=== PATIENT | female | born 1955 | race Caucasian/White ===

== ENCOUNTER 2016-09-09 17:30 | Emergency (ER) | payer BC ==
[~2016-09-09] VITALS: Ht 177.8 cm; Wt 100.0 kg
[~2016-09-09 17:30] MED LIST: ARIP10TA13 PO; BLVX50T PO; DIVA500T7 PO; HYDR-3025 PO; LORA0.5T PO; TEMA30CA PO; TRAM50TA2 PO; TRAZ300T15 PO
[2016-09-09 18:42] VITALS: Ht 177.8 cm; Wt 100.0 kg
[2016-09-09] MEDS ORDERED: HYDROmorphONE 1 MG/ML SYG IV STA (19:04)
[2016-09-09] MEDS ORDERED: ONDANSETRON 4 MG INJ IV STA (19:04)
[2016-09-09] MEDS ORDERED: BUPIVACAINE 0.25% (MPF) 10 ML 10 ML VIAL INJ ONE (19:30)
[2016-09-09] MEDS ORDERED: LIDOCAINE 1% (MDV) 20 ML INJ SC ONE (19:30)
[2016-09-09] MEDS ORDERED: LORAZEPAM 2 MG INJ IV ONE (19:30)
[2016-09-09] MEDS ORDERED: METHYLPREDNISOLONE 40 MG INJ IV ONE ×2 (19:30)
--- NOTE | 2016-09-09 19:41 | RADRPT ---
PROCEDURE: US Lower extremity Venous. CLINICAL INDICATION: Bilateral lower extremity pain and swelling TECHNIQUE: Multiple sonographic images of the bilateral lower extremity deep venous system was obt ained utilizing grayscale, color-flow, compressive sonography and doppler imaging with augmentation. The images were reviewed on a PACS workstation. COMPARISON: None. FINDINGS: There is normal compressibility and flow within the bilateral common femoral, deep femoral, superfic ial femoral and popliteal veins. The deep veins the calf were incompletely visualized. IMPRESSION: No sonographic evidence for deep venous thrombosis in the bilateral lower extremities. Physician Gio Date Time Electronically viewed and signed by Physician Gio on 09/09/2016 19:41 ML/
[2016-09-09] MEDS ORDERED: ARIP15TA2 PO (19:58)
[2016-09-09] MEDS ORDERED: PANT40TA4 PO (19:59)
[2016-09-09] MEDS ORDERED: BUPIVACAINE 0.25% (MPF) 30 ML INJ INJ ONE (20:00)
[2016-09-09] MEDS ORDERED: CIPR500T4 PO ×2 (20:00→20:34)
[2016-09-09] MEDS ORDERED: OXYB5TAB7 PO (20:01)
[2016-09-09] MEDS ORDERED: VENL75CA89 PO (20:03)
[2016-09-09] MEDS ORDERED: METR500T PO (20:34)
[2016-09-09] MEDS ORDERED: DIPH1TAB PO (20:34)
[2016-09-09] MEDS ORDERED: HYDR-902 PO (20:34)
--- NOTE | 2016-09-09 20:38 | ERD ---
ER Documentation Chief Complaint Date/Time DATE: 09/09/16 TIME: 20:35 Chief Complaint billateral lower extremity pain r/t chronic osteoarthritis. HPI This is 61-year-old female complains of bilateral knee pain due to her chronic osteoarthritis. She says her naproxen is not helping the pain today. Pain is sharp worse with movement and still there with rest but not as bad. She thinks she has some swelling in her knees. No fever no falls no trauma. No numbness weakness in the legs. Patient is morbidly obese. Pain does not radiate. She is also complaining of diarrhea for 2 weeks off and on. She says she is having 2 loose stools a day every other day for 2 weeks. No fever no vomiting no abdominal ROS All systems reviewed and are negative except as per history of present illness. Medications Home Meds Active Scripts Diphenoxylate HCl/Atropine (Lomotil 2.5-0.025 mg Tablet) 1 Each Tablet, 1 TAB PO QID Y for DIARRHEA, #10 TAB Prov:KAREEM ERAZO DO 09/09/16 Ciprofloxacin Hcl* (Ciprofloxacin Hcl*) 500 Mg Tablet, 500 MG PO BID for 10 Days , TAB Prov:KAREEM ERAZO DO 09/09/16 Metronidazole* (Flagyl*) 500 Mg Tablet, 500 MG PO TID for 10 Days, TAB Prov:KAREEM ERAZO DO 09/09/16 Hydrocodone/Acetaminophen ([place] 10-325 Tablet) 1 Each Tablet, 1 TAB PO Q6H Y for PAIN, #20 TAB Prov:KAREEM ERAZO DO 09/09/16 Reported Medications Venlafaxine Hcl* (Venlafaxine Hcl ER*) 75 Mg Cap.er.24h, 75 MG PO DAILY, CAP 09/09/16 Oxybutynin Chloride* (Ditropan*) 5 Mg Tab, 5 MG PO TID, TAB 09/09/16 Ciprofloxacin Hcl* (Ciprofloxacin Hcl*) 500 Mg Tablet, 500 MG PO BID, #14 TAB 09/09/16 Pantoprazole* (Pantoprazole*) 40 Mg Tablet.dr, 40 MG PO DAILY, TAB 09/09/16 Aripiprazole* (Abilify*) 15 Mg Tablet, 15 MG PO DAILY, #30 TAB 09/09/16 Temazepam* (Temazepam*) 30 Mg Capsule, 30 MG PO QHS Y for SLEEP, #30 10/27/15 Trazodone Hcl* (Trazodone Hcl*) 300 Mg Tablet, 300 MG PO QHS, #30 TAB 10/27/15 Divalproex Sodium* (Depakote*) 500 Mg Tablet.dr, 500 MG PO TID, #90 TAB 10/27/15 Fluvoxamine Maleate* (Luvox*) 50 Mg Tab, 200 MG PO BID, TAB TAKE 200MG QAM AND 250QPM 10/27/15 Discontinued Reported Medications Lorazepam* (Lorazepam*) 0.5 Mg Tablet, 0.5 MG PO DAILY Y for ANXIETY, TAB 10/27/15 Aripiprazole* (Abilify*) 10 Mg Tablet, 10 MG PO DAILY, #30 TAB 10/27/15 Discontinued Scripts Tramadol HCl (Tramadol HCl) 50 Mg Tablet, 50 MG PO Q6 Y for PAIN, #20 TAB Prov:HERMINIA RODRIGUES MD 03/05/16 Hydrocodone Bit-Acetaminophen* (Vicodin* ES) 7.5-300 Mg Tablet, 1 TAB PO Q4H Y for PAIN, #20 TAB Prov:ANURADHA SIM 10/27/15 Allergies Allergies: Coded Allergies: Fish Containing Products (Verified Allergy, Mild, rash, 09/09/16) Sulfa (Sulfonamide Antibiotics) (Verified Allergy, Mild, 09/09/16) strawberry (Verified Allergy, Mild, 09/09/16) turkey (Verified Allergy, Mild, 09/09/16) PMhx/Soc History of Surgery: Yes (RIGHT 2ND TOE AMBUTATION) Anesthesia Reaction: No Hx Neurological Disorder: No Hx Respiratory Disorders: No Hx Cardiac Disorders: Yes (murmur) Hx Psychiatric Problems: Yes (depression, ocd) Hx Miscellaneous Medical Probl: Yes (osteomyelitis r 2nd toe,depression,OCD, psychosis, skin ca) Hx Alcohol Use: No Hx Substance Use: No Hx Tobacco Use: No Smoking Status: Never smoker FmHx Family History: No coronary disease Physical Exam Vitals Vital Signs Date Time Temp Pulse Resp B/P Pulse Ox O2 Delivery O2 Flow Rate FiO2 09/09/16 18:42 98.0 90 22 155/104 100 Physical Exam Const: Well-developed, well-nourished Head: Atraumatic, normocephalic Eyes: Normal Conjunctiva, PERRLA, EOMI, normal sclera, no nystagmus ENT: Normal External Ears, Nose and Mouth, moist mucus membranes. Neck: Full range of motion. No meningismus, no lymphadenopathy. Resp: Clear to auscultation bilaterally, no wheezing, rhonchi, rales Cardio: Regular rate and rhythm, no murmurs, S1 S2 present Abd: Soft, non tender x 4, non distended. Normal bowel sounds, no guarding or rebound, no pulsitile abdominal masses or bruits Skin: No petechiae or rashes, no ecchymosis , no maculopapular rash Back: No midline or flank tenderness Ext: No cyanosis, or edema, FROM x 4, bilateral osteoarthritic knees with no erythema pain with range of motion is present, neurovascularly intact x 4 Neur: Awake and alert, STR 5/5 x 4, sensation intact x 4, no focal findings, cerebellum intact Psych: Normal Mood and Affect Results 24 hrs Current Medications Medications (Trade) Dose Ordered Sig/Pieter Route PRN Reason Start Time Stop Time Status Last Admin Dose Admin Lorazepam (Ativan) 0.5 mg ONCE ONCE IV 09/09/16 19:30 09/09/16 19:31 DC 09/09/16 19:43 Hydromorphone HCl (Dilaudid) 0.5 mg ONCE STAT IV 09/09/16 19:04 09/09/16 19:05 DC 09/09/16 19:40 Ondansetron HCl (Zofran Inj) 4 mg ONCE STAT IV 09/09/16 19:04 09/09/16 19:05 DC 09/09/16 19:39 Bupivacaine HCl (Marcaine 0.25% (Mpf) 10 ml) 10 ml ONCE ONCE INJ 09/09/16 19:30 09/09/16 19:31 DC Methylprednisolone Sodium Succinate (Solu-Medrol) 40 mg ONCE ONCE IV 09/09/16 19:30 09/09/16 19:31 DC 09/09/16 19:40 Methylprednisolone Sodium Succinate (Solu-Medrol) 40 mg ONCE ONCE IV 09/09/16 19:30 09/09/16 19:31 DC 09/09/16 19:40 Lidocaine (Xylocaine 1% (Mdv) 20 ml) 20 ml ONCE ONCE SC 09/09/16 19:30 09/09/16 19:31 DC 09/09/16 19:40 Bupivacaine HCl (Marcaine 0.25% (Mpf) 30 ml) 10 ml ONCE ONCE INJ 09/09/16 20:00 09/09/16 20:01 DC 09/09/16 20:08 Procedures/MDM Bilateral lower extremity ultrasound demonstrates no evidence of DVT Procedure: Right knee joint injection by ar Skin was prepped with aseptic technique and the skin was numbed with half a cc of 1% lidocaine. An 22-gauge inch and a half needle was then inserted the medial aspect of the right knee through the fat pad into the knee space where 5 cc of fluid was injected containing 1 cc of Solu-Medrol 4 cc of 0.25% bupivacaine. Patient tolerated procedure well Procedure:Left knee joint injection by ar Skin was prepped with aseptic technique and the skin was numbed with half a cc of 1% lidocaine. An 22-gauge inch and a half needle was then inserted the medial aspect of the left knee through the fat pad into the knee space where 5 cc of fluid was injected containing 1 cc of Solu-Medrol 4 cc of 0.25% bupivacaine. Patient tolerated procedure well We will cover the patient's diarrhea with Cipro and Flagyl Lomotil. Departure Diagnosis: Primary Impression: Diarrhea Diarrhea type: presumed infectious Qualified Code: A09 - Diarrhea of presumed infectious origin Additional Impression: Osteoarthritis Osteoarthritis location: knee Osteoarthritis type: unspecified Laterality: bilateral Qualified Code: M17.0 - Osteoarthritis of both knees, unspecified osteoarthritis type Condition: Stable Patient Instructions: Treating Diarrhea, Osteoarthritis KAREEM ERAZO DO Sep 09, 2016 20:38
[2016-09-09 21:26] VITALS: BP 131/80; PULSE 83; RESP 17; TEMP 97.5
== END 2016-09-09 21:45 | disposition home or self-care (01) ==
LOC: E/R 17:30
DX: A09 Infectious gastroenteritis and colitis, unspecified (principal); M17.0 Bilateral primary osteoarthritis of knee; Z85.828 Personal history of other malignant neoplasm of skin
CPT/HCPCS: 20610; 93970; 96374; 96375; 99284; J1170; J2060; J2405; J2920; Z7610

== ENCOUNTER 2016-10-24 09:17 | Emergency (ER) | payer BC ==
[~2016-10-24] VITALS: Ht 180.3 cm; Wt 75.0 kg
[~2016-10-24 09:17] MED LIST changes: -ARIP10TA13 PO; +ARIP15TA2 PO; +CIPR500T4 PO; +DIPH1TAB PO; -HYDR-3025 PO; +HYDR-902 PO; -LORA0.5T PO; +METR500T PO; +OXYB5TAB7 PO; +PANT40TA4 PO; -TRAM50TA2 PO; +VENL75CA89 PO
[2016-10-24 09:18] VITALS: Ht 180.3 cm; Wt 75.0 kg
[2016-10-24] MEDS ORDERED: LORAZEPAM 2 MG INJ IM STA (09:27)
[2016-10-24 11:28] LABS: ADD SCAN DIFF NO
[2016-10-24 11:33] LABS: BASOPHILS % 0.2 % (0.0-2.0); EOSINOPHILS % 0.2 % (0.0-7.0); HEMOGLOBIN 13.5 g/dl (12.0-16.0); LYMPHOCYTES # 1.5 10^3/ul (0.8-2.9); LYMPHOCYTES % 28.3 % (15.0-51.0); MEAN CORPUSCULAR HEMOGLOBIN 30.6 pg (29.0-33.0); MEAN CORPUSCULAR HGB CONC 32.1 g/dl (32.0-37.0); MEAN CORPUSCULAR VOLUME 95.2 fl (82.0-101.0); MEAN PLATELET VOLUME 9.9 fl (7.4-10.4); MONOCYTE # 0.4 10^3/ul (0.3-0.9); MONOCYTES % 8.1 % (0.0-11.0); NEUTROPHIL # 3.4 10^3/ul (1.6-7.5); PLATELET COUNT 256 10^3/UL (140-415); RED BLOOD COUNT 4.41 10^6/ul (4.20-5.40); RED CELL DISTRIBUTION WIDTH 13.4 % (11.5-14.5); WHITE BLOOD COUNT 5.5 10^3/ul (4.8-10.8)
[2016-10-24 11:40] LABS: ALBUMIN 4.3 g/dl (3.3-4.9); CHLORIDE 99 mmol/L (97-110)
[2016-10-24 11:41] LABS: POTASSIUM 4.3 mmol/L (3.5-5.1); SODIUM 142 mmol/L (135-144)
[2016-10-24 11:43] LABS: ALANINE AMINOTRANSFERASE 19 IU/L (13-69); ALBUMIN/GLOBULIN RATIO 1.34; ALKALINE PHOSPHATASE 120 IU/L (42-121); ANION GAP 15 (8-16); ASPARTATE AMINO TRANSFERASE 17 IU/L (15-46); BILIRUBIN,INDIRECT 0.1 mg/dl (0-1.1); BILIRUBIN,TOTAL 0.1 mg/dl (0.2-1.3); BLOOD UREA NITROGEN 20 mg/dl (7-20); CALCIUM 9.9 mg/dl (8.4-10.2); CARBON DIOXIDE 32 mmol/L (21-31); CREATININE 0.67 mg/dl (0.44-1.00); GLUCOSE 102 mg/dl (70-220); TOTAL PROTEIN 7.5 g/dl (6.1-8.1)
[2016-10-24 11:45] LABS: ACETAMINOPHEN < 10.0 ug/ml (10.0-30.0); ETHANOL < 10.0 mg/dl; SALICYLATE < 1.0 mg/dl (5.0-30.0)
[2016-10-24 11:49] LABS: ADD UMIC YES; URINE BILIRUBIN (Dip) NEGATIVE (NEGATIVE); URINE BLOOD (Dip) NEGATIVE (NEGATIVE); URINE COLOR LT. YELLOW (YELLOW); URINE GLUCOSE (Dip) NEGATIVE (NEGATIVE); URINE KETONES (Dip) NEGATIVE (NEGATIVE); URINE LEUKOCYTE ESTERASE (Dip) NEGATIVE (NEGATIVE); URINE NITRITE (Dip) POSITIVE (NEGATIVE); URINE TOTAL PROTEIN (Dip) NEGATIVE (NEGATIVE); URINE UROBILINOGEN (Dip) 0.2 E.U./dL (0.1-1.0)
[2016-10-24] MEDS ORDERED: CEPHALEXIN 500 MG CAP PO ONE (12:00)
[2016-10-24 12:08] LABS: BACTERIA,URINE MODERATE; URINE RBCS NONE SEEN /HPF (0)
[2016-10-24 12:15] LABS: BARBITURATES Negative (NEGATIVE); BENZODIAZEPINES Negative (NEGATIVE); CANNABINOIDS Negative (NEGATIVE); COCAINE Negative (NEGATIVE); OPIATES Negative (NEGATIVE)
--- NOTE | 2016-10-24 12:34 | PSY ---
Date/Time of Note Date/Time of Note DATE: 10/24/16 TIME: 12:28 Psychiatric Subjective Eval Consent Pt consented to telemedicine: Yes Subjective Evaluation Patient location: emergency Chief Complaint: Neck pain and anxiety started this morning Reason for consult: SUICIDAL IDEATION History of present illness D/w Dr Denise. Pt is 61 yo single disabled female with hx Bipolar II disorder and OA who called in private ambulance saying she has Si and neck pain and needs help. Pt says she wants to be transferred to a better board and care. Then asked about SI she first say she will ran into traffic but later admits she can not walk even to get to the bathroom and wears diapers. She then agrees to go back to her board and care but says she does not like it and will work on finding another place. Denies Si or Hi,denies Ah or Vh. Past psychiatric history pt says she has a multiple psych inpt for depression and Si but never in her life tried to commit suicide Hospitalization: yes Family History denies Medical history Problems Medical Problems: (1) Diarrhea Status: Acute (2) Osteoarthritis Status: Acute (3) Pain of toe Status: Acute Allergies: Coded Allergies: Fish Containing Products (Verified Allergy, Mild, rash, 09/09/16) Sulfa (Sulfonamide Antibiotics) (Verified Allergy, Mild, 09/09/16) strawberry (Verified Allergy, Mild, 09/09/16) turkey (Verified Allergy, Mild, 09/09/16) Substance Abuse Substance use: No known substance abuse Social History Marital status: single Level of education: 4 YEAR DEGREE DPA/Conservatorship: No Psychiatric Objective Eval Mental Status Examination: Appearance: Groomed Eye Contact: Good Psychomotor Activity: Normal Behavior: Cooperative Speech: Clear AFFECT: Anxious Mood: Anxious Though Process: Linear Thought Content: Normal Suicidal: No Homicidal: No On 72 hour hold: No Orientation: x4 Cognition: Alert Insight: Intact Judgement: Intact Laboratory Results Laboratory Tests Test 10/24/16 10:52 10/24/16 11:21 Urine Color LT. YELLOW Urine Clarity CLEAR Urine pH 7.0 Urine Specific [place] 1.015 Urine Ketones NEGATIVE Urine Nitrite POSITIVE Urine Bilirubin NEGATIVE Urine Urobilinogen 0.2 E.U./dL Urine Leukocyte Esterase NEGATIVE Urine Microscopic RBC NONE SEEN/HPF Urine Microscopic WBC 0-2/HPF Urine Bacteria MODERATE Urine Hemoglobin NEGATIVE Urine Glucose NEGATIVE% Urine Total Protein NEGATIVE Urine Opiates Screen Negative Urine Barbiturates Negative Urine Amphetamines Screen Negative Urine Benzodiazepines Screen Negative Urine Cocaine Screen Negative Urine Cannabinoids Negative White Blood Count 5.510^3/ul Red Blood Count 4.4110^6/ul Hemoglobin 13.5g/dl Hematocrit 42.0% Mean Corpuscular Volume 95.2fl Mean Corpuscular Hemoglobin 30.6pg Mean Corpuscular Hemoglobin Concent 32.1g/dl Red Cell Distribution Width 13.4% Platelet Count 84489^3/UL Mean Platelet Volume 9.9fl Neutrophils % 63.0% Lymphocytes % 28.3% Monocytes % 8.1% Eosinophils % 0.2% Basophils % 0.2% Nucleated Red Blood Cells % 0.0/100WBC Neutrophils # 3.410^3/ul Lymphocytes # 1.510^3/ul Monocytes # 0.410^3/ul Eosinophils # 0.010^3/ul Basophils # 0.010^3/ul Nucleated Red Blood Cells # 0.010^3/ul Sodium Level 142mmol/L Potassium Level 4.3mmol/L Chloride Level 99mmol/L Carbon Dioxide Level 32mmol/L Anion Gap 15 Blood Urea Nitrogen 20mg/dl Creatinine 0.67mg/dl Glucose Level 102mg/dl Calcium Level 9.9mg/dl Total Bilirubin 0.1mg/dl Direct Bilirubin 0.00mg/dl Indirect Bilirubin 0.1mg/dl Aspartate Amino Transf (AST/SGOT) 17IU/L Alanine Aminotransferase (ALT/SGPT) 19IU/L Alkaline Phosphatase 120IU/L Total Protein 7.5g/dl Albumin 4.3g/dl Globulin 3.20g/dl Albumin/Globulin Ratio 1.34 Salicylates Level < 1.0mg/dl Acetaminophen Level < 10.0ug/ml Ethyl Alcohol Level < 10.0mg/dl Assessment and Plan Assessment/Diagnosis [place] I: BIPOLAR II DISORDER [place] II: DEPENDENT PERSONALITY TRAITS [place] III: PER RECORD [place] IV: MODERATE [place] V: GAF 45 Recommendation/Plan Medication Management CONTINUE CURRENT MEDS; PT WAS ADVISED TO CALL HER PSYCHIATRIST FOR MEDS MANAGEMENT IN A MEAN TIME SHE SHOULD CONTINUE CURRENT MEDS REGIME Psychotherapy DEFERED TO OUTPT Follow-up/Disposition PT DOES NOT PRESENT DTS - HER SUICIDAL STATEMENT WAS A PART OF MANIPULATIVE BEHAVIOR IN ORDER TO GET A NEW PLACEMENT REAL FRAZIER MD Oct 24, 2016 12:34
[2016-10-24] MEDS ORDERED: CEPH-443 PO (13:22)
--- NOTE | 2016-10-24 13:52 | ERD ---
ER Documentation Chief Complaint Date/Time DATE: 10/24/16 TIME: 13:47 Chief Complaint Neck pain and anxiety started this morning HPI 61-year-old woman brought in by EMS for anxiety and crying this morning while at a boarding care living facility. She states she has a long history of anxiety and obsessive-compulsive disorder when she found out her new living situation she became more anxious. She recently moved to this new living facility. She denies suicidal or homicidal ideation, no fevers or chills, no complaints of chest pain or shortness of breath. Patient was transported here by EMS without further complications. ROS All systems reviewed and are negative except as per history of present illness. Medications Home Meds Active Scripts Cephalexin* (Keflex*) 500 Mg Capsule, 500 MG PO TID for 7 Days, CAP Prov:MERLYN WATSON MD 10/24/16 Diphenoxylate HCl/Atropine (Lomotil 2.5-0.025 mg Tablet) 1 Each Tablet, 1 TAB PO QID Y for DIARRHEA, #10 TAB Prov:KAREEM ERAZO DO 09/09/16 Ciprofloxacin Hcl* (Ciprofloxacin Hcl*) 500 Mg Tablet, 500 MG PO BID for 10 Days , TAB Prov:KAREEM ERAZO DO 09/09/16 Metronidazole* (Flagyl*) 500 Mg Tablet, 500 MG PO TID for 10 Days, TAB Prov:KAREEM ERAZO DO 09/09/16 Hydrocodone/Acetaminophen ([place] 10-325 Tablet) 1 Each Tablet, 1 TAB PO Q6H Y for PAIN, #20 TAB Prov:KAREEM ERAZO DO 09/09/16 Reported Medications Venlafaxine Hcl* (Venlafaxine Hcl ER*) 75 Mg Cap.er.24h, 75 MG PO DAILY, CAP 09/09/16 Oxybutynin Chloride* (Ditropan*) 5 Mg Tab, 5 MG PO TID, TAB 09/09/16 Ciprofloxacin Hcl* (Ciprofloxacin Hcl*) 500 Mg Tablet, 500 MG PO BID, #14 TAB 09/09/16 Pantoprazole* (Pantoprazole*) 40 Mg Tablet.dr, 40 MG PO DAILY, TAB 09/09/16 Aripiprazole* (Abilify*) 15 Mg Tablet, 15 MG PO DAILY, #30 TAB 09/09/16 Temazepam* (Temazepam*) 30 Mg Capsule, 30 MG PO QHS Y for SLEEP, #30 10/27/15 Trazodone Hcl* (Trazodone Hcl*) 300 Mg Tablet, 300 MG PO QHS, #30 TAB 10/27/15 Divalproex Sodium* (Depakote*) 500 Mg Tablet.dr, 500 MG PO TID, #90 TAB 10/27/15 Fluvoxamine Maleate* (Luvox*) 50 Mg Tab, 200 MG PO BID, TAB TAKE 200MG QAM AND 250QPM 10/27/15 Allergies Allergies: Coded Allergies: Fish Containing Products (Verified Allergy, Mild, rash, 09/09/16) Sulfa (Sulfonamide Antibiotics) (Verified Allergy, Mild, 09/09/16) strawberry (Verified Allergy, Mild, 09/09/16) turkey (Verified Allergy, Mild, 09/09/16) PMhx/Soc Hypertension, anxiety, gastritis, OCD History of Surgery: Yes (RIGHT 2ND TOE AMBUTATION) Anesthesia Reaction: No Hx Neurological Disorder: No Hx Respiratory Disorders: Yes (COPD) Hx Cardiac Disorders: Yes (murmur) Hx Psychiatric Problems: Yes (depression, ocd) Hx Miscellaneous Medical Probl: Yes (osteomyelitis r 2nd toe,depression,OCD, psychosis, skin ca) Hx Alcohol Use: No Hx Substance Use: No Hx Tobacco Use: No Smoking Status: Never smoker FmHx Family History: No diabetes Physical Exam Vitals Vital Signs Date Time Temp Pulse Resp B/P Pulse Ox O2 Delivery O2 Flow Rate FiO2 10/24/16 09:18 98.2 100 18 166/82 94 Physical Exam GENERAL: Well-developed, well-nourished, anxious and tearful HEENT: Moist mucous membranes, pink conjunctiva, no cervical spine tenderness or step-off deformities, no goiter, no jaundice or icterus, extraocular movements intact without pain. No submandibular induration, and no pharyngeal erythema NEURO: Alert and oriented 3, cranial nerves II through XII intact bilaterally, pupils equal round reactive to light, no focal deficits or facial asymmetry, sensation intact distally Strength 5/5 in upper and lower extremities bilaterally CARDIAC: Tachycardic and regular, no murmurs rubs or gallops LUNGS: Clear bilaterally no wheezing crackles or stridor ABDOMEN: Soft nontender, no guarding, no rigidity, no rebound, no psoas sign no obturator sign. Normoactive bowel sounds SKIN: Warm and dry to touch, no abrasions, contusions, or hematomas, no lacerations, no ecchymosis, no target lesions, and without ulcers EXTREMITIES: No clubbing cyanosis or edema, calves are bilaterally symmetrical, no Homans sign, no popliteal cord sign. Distal pulses equal and bilateral PSYCH: Anxious and tearful Result Diagram: 10/24/16 1121 10/24/16 1121 Results 24 hrs Laboratory Tests Test 10/24/16 10:52 10/24/16 11:21 Urine Color LT. YELLOW Urine Clarity CLEAR Urine pH 7.0 Urine Specific [place] 1.015 Urine Ketones NEGATIVE Urine Nitrite POSITIVE Urine Bilirubin NEGATIVE Urine Urobilinogen 0.2 E.U./dL Urine Leukocyte Esterase NEGATIVE Urine Microscopic RBC NONE SEEN/HPF Urine Microscopic WBC 0-2/HPF Urine Bacteria MODERATE Urine Hemoglobin NEGATIVE Urine Glucose NEGATIVE% Urine Total Protein NEGATIVE Urine Opiates Screen Negative Urine Barbiturates Negative Urine Amphetamines Screen Negative Urine Benzodiazepines Screen Negative Urine Cocaine Screen Negative Urine Cannabinoids Negative White Blood Count 5.510^3/ul Red Blood Count 4.4110^6/ul Hemoglobin 13.5g/dl Hematocrit 42.0% Mean Corpuscular Volume 95.2fl Mean Corpuscular Hemoglobin 30.6pg Mean Corpuscular Hemoglobin Concent 32.1g/dl Red Cell Distribution Width 13.4% Platelet Count 64449^3/UL Mean Platelet Volume 9.9fl Neutrophils % 63.0% Lymphocytes % 28.3% Monocytes % 8.1% Eosinophils % 0.2% Basophils % 0.2% Nucleated Red Blood Cells % 0.0/100WBC Neutrophils # 3.410^3/ul Lymphocytes # 1.510^3/ul Monocytes # 0.410^3/ul Eosinophils # 0.010^3/ul Basophils # 0.010^3/ul Nucleated Red Blood Cells # 0.010^3/ul Sodium Level 142mmol/L Potassium Level 4.3mmol/L Chloride Level 99mmol/L Carbon Dioxide Level 32mmol/L Anion Gap 15 Blood Urea Nitrogen 20mg/dl Creatinine 0.67mg/dl Glucose Level 102mg/dl Calcium Level 9.9mg/dl Total Bilirubin 0.1mg/dl Direct Bilirubin 0.00mg/dl Indirect Bilirubin 0.1mg/dl Aspartate Amino Transf (AST/SGOT) 17IU/L Alanine Aminotransferase (ALT/SGPT) 19IU/L Alkaline Phosphatase 120IU/L Total Protein 7.5g/dl Albumin 4.3g/dl Globulin 3.20g/dl Albumin/Globulin Ratio 1.34 Salicylates Level < 1.0mg/dl Acetaminophen Level < 10.0ug/ml Ethyl Alcohol Level < 10.0mg/dl Current Medications Medications (Trade) Dose Ordered Sig/Pieter Route PRN Reason Start Time Stop Time Status Last Admin Dose Admin Lorazepam (Ativan) 1 mg ONCE STAT IM 10/24/16 09:27 10/24/16 09:29 DC 10/24/16 10:03 Cephalexin (Keflex) 500 mg ONCE ONCE PO 10/24/16 12:00 10/24/16 12:01 DC 10/24/16 12:19 Procedures/MDM 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 For anxiety administer lorazepam 1 mg intramuscular injection with good results. CBC and electrolytes were normal, urine analysis was positive for infection I treated her here with cephalexin 500 mg p.o. Tele-psychiatry consultation was obtained and the psychiatrist recommended against emergent psychiatric hold and no need at this time for acute inpatient management. She felt some of her symptoms were secondary to anxiety associated with the new living facility and that she did not present an acute danger to herself or others at this time. Patient's behavioral symptoms have stabilized while in the department. Patient is medically cleared and appropriate for outpatient psychiatric evaluation and work up. No e/o neurologic, toxic, infectious, or metabolic cause. Differential diagnoses considered, included but not limited to acute coronary syndrome, pulmonary embolism, aortic dissection, abdominal aortic aneurysm, sepsis, stroke, meningitis, encephalitis, pneumonia, appendicitis, cholecystitis , bowel obstruction, pyelonephritis, nephrolithiasis, cystitis, as well as metabolic, hematologic, and electrolyte abnormalities. As well as abscess, cellulitis, fractures, and dislocations. Patient feels much better at this time, and vital signs are normal, symptoms have improved. I did give strict instructions to return to the ED if symptoms continue or worsen, patient will otherwise follow-up with primary care physician. Patient understood instructions and agreed to plan. Departure Diagnosis: Primary Impression: Bipolar 1 disorder Additional Impression: UTI (urinary tract infection) Urinary tract infection type: acute cystitis Hematuria presence: without hematuria Qualified Code: N30.00 - Acute cystitis without hematuria Condition: Good Patient Instructions: Anxiety Reaction, Bipolar Disorder, Bladder Infection, Female (Adult) MERLYN WATSON MD Oct 24, 2016 13:52
[2016-10-24 13:53] VITALS: BP 173/96; PULSE 100; RESP 16; TEMP 97.9
== END 2016-10-24 14:22 | disposition home or self-care (01) ==
LOC: E/R 09:17
DX: F31.9 Bipolar disorder, unspecified (principal); N30.00 Acute cystitis without hematuria; I10 Essential (primary) hypertension; J44.9 Chronic obstructive pulmonary disease, unspecified; Z85.828 Personal history of other malignant neoplasm of skin
CPT/HCPCS: 36415; 80053; 80306; 80307; 81001; 85025; 96372; 99284; J2060; Z7610; 81003

== ENCOUNTER 2016-12-19 17:55 | Emergency (ER) | payer BC ==
[~2016-12-19] VITALS: Ht 177.8 cm; Wt 95.5 kg
[~2016-12-19 17:55] MED LIST changes: +CEPH-443 PO; -CIPR500T4 PO
[2016-12-19 17:59] VITALS: Ht 177.8 cm; Wt 95.5 kg
--- NOTE | 2016-12-19 18:33 | ERD ---
ER Documentation Chief Complaint Date/Time DATE: 12/19/16 TIME: 18:33 Chief Complaint DIARRHEA X3 DAYS, BURNING PAIN IN RECTUM AND VAGINA FROM DIARRHEA, ABD PAIN HPI Patient is a 61-year-old female who presents with gradual onset, intermittent, watery diarrhea for the last 3 years. She reports that symptoms last approximately 3 days and then resolve spontaneously. They then recur 2-3 weeks later. She denies dark or bloody stool. She denies fever. She reports mild suprapubic pain, denies dysuria or hematuria. She denies vaginal discharge. She reports that she has had 1-2 episodes of vomiting for the last 3 days, which is a new symptom for her. She denies dizziness, back pain, dyspnea. She reports that she finished a course of Cipro for UTI 1 week ago. She states that she has never seen a veneer manufacturer for her symptoms. She states that she is in the process of trying to find a new primary physician. She denies recent travel or eating undercooked foods, denies sick contacts. The patient reports skin irritation in the perianal area. ROS All systems reviewed and are negative except as per history of present illness. Medications Home Meds Active Scripts Menthol/Zinc Oxide (Calmoseptine Ointment) 71 Gm Oint..gm., 1 APPLIC TP BID for 5 Days, #1 TUB Prov:ERIKA GASPAR MD 12/19/16 Cephalexin* (Keflex*) 500 Mg Capsule, 500 MG PO QID for 7 Days, CAP Prov:ERIKA GASPAR MD 12/19/16 Cephalexin* (Keflex*) 500 Mg Capsule, 500 MG PO TID for 7 Days, CAP Prov:MERLYN WATSON MD 10/24/16 Diphenoxylate HCl/Atropine (Lomotil 2.5-0.025 mg Tablet) 1 Each Tablet, 1 TAB PO QID Y for DIARRHEA, #10 TAB Prov:KAREEM ERAZO DO 09/09/16 Metronidazole* (Flagyl*) 500 Mg Tablet, 500 MG PO TID for 10 Days, TAB Prov:KAREEM ERAZO DO 09/09/16 Hydrocodone/Acetaminophen ([place] 10-325 Tablet) 1 Each Tablet, 1 TAB PO Q6H Y for PAIN, #20 TAB Prov:KAREEM ERAZO DO 09/09/16 Reported Medications Venlafaxine Hcl* (Venlafaxine Hcl ER*) 75 Mg Cap.er.24h, 75 MG PO DAILY, CAP 09/09/16 Oxybutynin Chloride* (Ditropan*) 5 Mg Tab, 5 MG PO TID, TAB 09/09/16 Pantoprazole* (Pantoprazole*) 40 Mg Tablet.dr, 40 MG PO DAILY, TAB 09/09/16 Aripiprazole* (Abilify*) 15 Mg Tablet, 15 MG PO DAILY, #30 TAB 09/09/16 Temazepam* (Temazepam*) 30 Mg Capsule, 30 MG PO QHS Y for SLEEP, #30 10/27/15 Trazodone Hcl* (Trazodone Hcl*) 300 Mg Tablet, 300 MG PO QHS, #30 TAB 10/27/15 Divalproex Sodium* (Depakote*) 500 Mg Tablet.dr, 500 MG PO TID, #90 TAB 10/27/15 Fluvoxamine Maleate* (Luvox*) 50 Mg Tab, 200 MG PO BID, TAB TAKE 200MG QAM AND 250QPM 10/27/15 Allergies Allergies: Coded Allergies: Fish Containing Products (Verified Allergy, Mild, rash, 09/09/16) Sulfa (Sulfonamide Antibiotics) (Verified Allergy, Mild, 09/09/16) strawberry (Verified Allergy, Mild, 09/09/16) turkey (Verified Allergy, Mild, 09/09/16) PMhx/Soc Past medical history: Osteoarthritis, chronic diarrhea, COPD, depression, OCD Past surgical history: Denies Social history: Denies tobacco, drinks occasional alcohol History of Surgery: Yes (RIGHT 2ND TOE AMBUTATION) Anesthesia Reaction: No Hx Neurological Disorder: No Hx Respiratory Disorders: Yes (COPD(2ND HAND)) Hx Cardiac Disorders: Yes (murmur) Hx Psychiatric Problems: Yes (depression, ocd) Hx Miscellaneous Medical Probl: Yes (osteomyelitis r 2nd toe,depression,OCD, psychosis, skin ca) Hx Alcohol Use: Yes (OOC/SOCIAL) Hx Substance Use: No Hx Tobacco Use: No Smoking Status: Never smoker FmHx Family History: No coronary disease, No diabetes Physical Exam Vitals Vital Signs Date Time Temp Pulse Resp B/P Pulse Ox O2 Delivery O2 Flow Rate FiO2 12/19/16 23:36 98.4 79 17 147/89 98 Room Air 12/19/16 19:57 98.0 88 17 132/84 98 Room Air 12/19/16 17:59 97.9 85 17 132/63 96 Physical Exam Const: Alert, no acute distress Head: Atraumatic Eyes: Normal Conjunctiva, no pallor, no icterus ENT: Normal External Ears, Nose and Mouth. Mucous membranes moist Neck: Full range of motion..~ No meningismus. Resp: Clear to auscultation bilaterally, no wheezes, no rales Cardio: Regular rate and rhythm, no murmurs Abd: Soft, non distended. Mild suprapubic pain, no rebound, no guarding Skin: No petechiae. Slightly macerated tissue on the buttocks surrounding the anus Back: No midline or flank tenderness Ext: No cyanosis, or edema Neur: Awake and alert, cranial nerves II through XII intact bilaterally, moves and feels 4 extremities appropriately Psych: Normal Mood and Affect Result Diagram: 12/19/16182912/19/161829 Results 24 hrs Laboratory Tests Test 12/19/16 18:30 12/19/16 19:40 White Blood Count 6.810^3/ul Red Blood Count 3.6910^6/ul Hemoglobin 11.5g/dl Hematocrit 34.4% Mean Corpuscular Volume 93.2fl Mean Corpuscular Hemoglobin 31.2pg Mean Corpuscular Hemoglobin Concent 33.4g/dl Red Cell Distribution Width 13.9% Platelet Count 48411^3/UL Mean Platelet Volume 9.7fl Neutrophils % 60.4% Lymphocytes % 30.8% Monocytes % 7.6% Eosinophils % 0.9% Basophils % 0.0% Nucleated Red Blood Cells % 0.0/100WBC Neutrophils # 4.110^3/ul Lymphocytes # 2.110^3/ul Monocytes # 0.510^3/ul Eosinophils # 0.110^3/ul Basophils # 0.010^3/ul Nucleated Red Blood Cells # 0.010^3/ul Urine Color LT. YELLOW LT. YELLOW Urine Clarity CLEAR SLIGHTLY CLOUDY Urine pH 6.5 6.5 Urine Specific [place] 1.020 1.015 Urine Ketones NEGATIVE NEGATIVE Urine Nitrite NEGATIVE NEGATIVE Urine Bilirubin NEGATIVE NEGATIVE Urine Urobilinogen 0.2 E.U./dL 0.2 E.U./dL Urine Leukocyte Esterase 1+ 1+ Urine Microscopic RBC 2-5/HPF 0-2/HPF Urine Microscopic WBC 25-50/HPF 25-50/HPF Urine Squamous Epithelial Cells MODERATE FEW Urine Bacteria FEW RARE Urine Hemoglobin TRACE NEGATIVE Urine Glucose NEGATIVE% NEGATIVE% Urine Total Protein NEGATIVE NEGATIVE Sodium Level 145mmol/L Potassium Level 4.3mmol/L Chloride Level 106mmol/L Carbon Dioxide Level 28mmol/L Anion Gap 15 Blood Urea Nitrogen 31mg/dl Creatinine 0.80mg/dl Glucose Level 101mg/dl Calcium Level 9.8mg/dl Total Bilirubin 0.1mg/dl Direct Bilirubin 0.00mg/dl Indirect Bilirubin 0.1mg/dl Aspartate Amino Transf (AST/SGOT) 15IU/L Alanine Aminotransferase (ALT/SGPT) 27IU/L Alkaline Phosphatase 98IU/L Total Protein 6.8g/dl Albumin 4.3g/dl Globulin 2.50g/dl Albumin/Globulin Ratio 1.72 Procedures/MDM MDM: Patient is a 61-year-old female who reports recurrent diarrhea for more than 3 years. She is also had a few episodes of vomiting recently. She has normal electrolytes, no history to suggest GI bleed. She is found to have a UTI. There are no signs of sepsis. There is no vomiting in the ER, and the patient was unable to provide a stool sample during several hours in the ER. Patient was noted to have irritated skin in the perianal area. She will be discharged home with Keflex for UTI and calmoseptine for skin irritation. She was advised to follow-up with a veneer manufacturer given the chronicity of her symptoms. The patient is noted to wear diapers when she goes out of the home due to OCD and not wanting to use public toilets. She was advised that this will worsen her skin irritation. Departure Diagnosis: Primary Impression: Diarrhea Diarrhea type: unspecified type Qualified Code: R19.7 - Diarrhea, unspecified type Additional Impression: UTI (urinary tract infection) Urinary tract infection type: site unspecified Hematuria presence: without hematuria Qualified Code: N39.0 - Urinary tract infection without hematuria, site unspecified Condition: ERIKA Benavides MD Dec 19, 2016 18:33
[2016-12-19 18:47] LABS: ADD SCAN DIFF NO
[2016-12-19 18:50] LABS: EOSINOPHILS # 0.1 10^3/ul (0.0-0.5); EOSINOPHILS % 0.9 % (0.0-7.0); HEMATOCRIT 34.4 % (37.0-47.0); HEMOGLOBIN 11.5 g/dl (12.0-16.0); LYMPHOCYTES # 2.1 10^3/ul (0.8-2.9); LYMPHOCYTES % 30.8 % (15.0-51.0); MEAN CORPUSCULAR HEMOGLOBIN 31.2 pg (29.0-33.0); MEAN CORPUSCULAR HGB CONC 33.4 g/dl (32.0-37.0); MEAN CORPUSCULAR VOLUME 93.2 fl (82.0-101.0); MEAN PLATELET VOLUME 9.7 fl (7.4-10.4); MONOCYTE # 0.5 10^3/ul (0.3-0.9); MONOCYTES % 7.6 % (0.0-11.0); NEUTROPHIL # 4.1 10^3/ul (1.6-7.5); NEUTROPHILS % 60.4 % (39.0-77.0); PLATELET COUNT 259 10^3/UL (140-415); RED BLOOD COUNT 3.69 10^6/ul (4.20-5.40); RED CELL DISTRIBUTION WIDTH 13.9 % (11.5-14.5); WHITE BLOOD COUNT 6.8 10^3/ul (4.8-10.8)
[2016-12-19 18:59] LABS: ADD UMIC YES; URINE BILIRUBIN (Dip) NEGATIVE (NEGATIVE); URINE BLOOD (Dip) TRACE (NEGATIVE); URINE COLOR LT. YELLOW (YELLOW); URINE GLUCOSE (Dip) NEGATIVE (NEGATIVE); URINE KETONES (Dip) NEGATIVE (NEGATIVE); URINE LEUKOCYTE ESTERASE (Dip) 1+ (NEGATIVE); URINE NITRITE (Dip) NEGATIVE (NEGATIVE); URINE TOTAL PROTEIN (Dip) NEGATIVE (NEGATIVE); URINE UROBILINOGEN (Dip) 0.2 E.U./dL (0.1-1.0)
[2016-12-19 19:08] LABS: ALBUMIN 4.3 g/dl (3.3-4.9); ALBUMIN/GLOBULIN RATIO 1.72; BILIRUBIN,INDIRECT 0.1 mg/dl (0-1.1); BILIRUBIN,TOTAL 0.1 mg/dl (0.2-1.3); CALCIUM 9.8 mg/dl (8.4-10.2); CREATININE 0.8 mg/dl (0.44-1.00); POTASSIUM 4.3 mmol/L (3.5-5.1); TOTAL PROTEIN 6.8 g/dl (6.1-8.1)
[2016-12-19 19:11] LABS: BACTERIA,URINE FEW; SQUAMOUS EPITHELIAL CELL,UR MODERATE
[2016-12-19 19:54] LABS: ADD UMIC YES; URINE BILIRUBIN (Dip) NEGATIVE (NEGATIVE); URINE BLOOD (Dip) NEGATIVE (NEGATIVE); URINE COLOR LT. YELLOW (YELLOW); URINE GLUCOSE (Dip) NEGATIVE (NEGATIVE); URINE KETONES (Dip) NEGATIVE (NEGATIVE); URINE LEUKOCYTE ESTERASE (Dip) 1+ (NEGATIVE); URINE NITRITE (Dip) NEGATIVE (NEGATIVE); URINE TOTAL PROTEIN (Dip) NEGATIVE (NEGATIVE); URINE UROBILINOGEN (Dip) 0.2 E.U./dL (0.1-1.0)
[2016-12-19 20:23] LABS: SQUAMOUS EPITHELIAL CELL,UR FEW; URINE RBCS 0-2 /HPF (0)
[2016-12-19 20:24] LABS: BACTERIA,URINE RARE
[2016-12-19] MEDS ORDERED: CEPH-443 PO (22:38)
[2016-12-19] MEDS ORDERED: MENT71OI TP (22:38)
[2016-12-19 23:36] VITALS: BP 147/89; PULSE 79; RESP 17; TEMP 98.4
== END 2016-12-19 23:39 | disposition home or self-care (01) ==
LOC: E/R 17:55
DX: R19.7 Diarrhea, unspecified (principal); N39.0 Urinary tract infection, site not specified; J44.9 Chronic obstructive pulmonary disease, unspecified; R40.2142 Coma scale, eyes open, spontaneous, at arrival to emergency department; R40.2252 Coma scale, best verbal response, oriented, at arrival to emergency department; R40.2362 Coma scale, best motor response, obeys commands, at arrival to emergency department; Z85.828 Personal history of other malignant neoplasm of skin
CPT/HCPCS: 36415; 80053; 81001; 85025; 87086; 99283; P9612

== ENCOUNTER 2016-12-29 02:07 | Emergency (ER) | payer BC ==
[~2016-12-29] VITALS: Ht 177.8 cm; Wt 93.2 kg
[~2016-12-29 02:07] MED LIST changes: +MENT71OI TP
[2016-12-29 02:10] VITALS: Ht 177.8 cm; Wt 93.2 kg
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
[2016-12-29 03:05] LABS: ADD SCAN DIFF NO
[2016-12-29 03:06] LABS: BASOPHILS % 0.2 % (0.0-2.0); EOSINOPHILS % 0.6 % (0.0-7.0); HEMATOCRIT 38.3 % (37.0-47.0); HEMOGLOBIN 12.4 g/dl (12.0-16.0); LYMPHOCYTES # 1.8 10^3/ul (0.8-2.9); LYMPHOCYTES % 34.2 % (15.0-51.0); MEAN CORPUSCULAR HEMOGLOBIN 30.6 pg (29.0-33.0); MEAN CORPUSCULAR HGB CONC 32.4 g/dl (32.0-37.0); MEAN CORPUSCULAR VOLUME 94.6 fl (82.0-101.0); MEAN PLATELET VOLUME 9.5 fl (7.4-10.4); MONOCYTE # 0.6 10^3/ul (0.3-0.9); MONOCYTES % 12.1 % (0.0-11.0); NEUTROPHIL # 2.7 10^3/ul (1.6-7.5); NEUTROPHILS % 52.5 % (39.0-77.0); PLATELET COUNT 227 10^3/UL (140-415); RED BLOOD COUNT 4.05 10^6/ul (4.20-5.40); RED CELL DISTRIBUTION WIDTH 13.9 % (11.5-14.5); WHITE BLOOD COUNT 5.2 10^3/ul (4.8-10.8)
--- NOTE | 2016-12-29 03:12 | ERA ---
ER Documentation Chief Complaint Date/Time DATE: 12/29/16 TIME: 03:12 Chief Complaint KLAUS SI no plan,from Home,diarrhea X2 days,groin pain HPI This 61-year-old female says that she is suicidal. She does not have any plan. She denies any fevers or chills. Denies any nausea vomiting. Denies any other current complaints. Denies hearing voices per ROS All systems reviewed and are negative except as per history of present illness. Medications Home Meds Active Scripts Menthol/Zinc Oxide (Calmoseptine Ointment) 71 Gm Oint..gm., 1 APPLIC TP BID for 5 Days, #1 TUB Prov:ERIKA GASPAR MD 12/19/16 Cephalexin* (Keflex*) 500 Mg Capsule, 500 MG PO QID for 7 Days, CAP Prov:ERIKA GASPAR MD 12/19/16 Cephalexin* (Keflex*) 500 Mg Capsule, 500 MG PO TID for 7 Days, CAP Prov:MERLYN WATSON MD 10/24/16 Diphenoxylate HCl/Atropine (Lomotil 2.5-0.025 mg Tablet) 1 Each Tablet, 1 TAB PO QID Y for DIARRHEA, #10 TAB Prov:KAREEM ERAZO DO 09/09/16 Metronidazole* (Flagyl*) 500 Mg Tablet, 500 MG PO TID for 10 Days, TAB Prov:KAREEM ERAZO DO 09/09/16 Hydrocodone/Acetaminophen ([place] 10-325 Tablet) 1 Each Tablet, 1 TAB PO Q6H Y for PAIN, #20 TAB Prov:KAREEM ERAZO DO 09/09/16 Reported Medications Venlafaxine Hcl* (Venlafaxine Hcl ER*) 75 Mg Cap.er.24h, 75 MG PO DAILY, CAP 09/09/16 Oxybutynin Chloride* (Ditropan*) 5 Mg Tab, 5 MG PO TID, TAB 09/09/16 Pantoprazole* (Pantoprazole*) 40 Mg Tablet.dr, 40 MG PO DAILY, TAB 09/09/16 Aripiprazole* (Abilify*) 15 Mg Tablet, 15 MG PO DAILY, #30 TAB 09/09/16 Temazepam* (Temazepam*) 30 Mg Capsule, 30 MG PO QHS Y for SLEEP, #30 10/27/15 Trazodone Hcl* (Trazodone Hcl*) 300 Mg Tablet, 300 MG PO QHS, #30 TAB 10/27/15 Divalproex Sodium* (Depakote*) 500 Mg Tablet.dr, 500 MG PO TID, #90 TAB 10/27/15 Fluvoxamine Maleate* (Luvox*) 50 Mg Tab, 200 MG PO BID, TAB TAKE 200MG QAM AND 250QPM 10/27/15 Allergies Allergies: Coded Allergies: Fish Containing Products (Verified Allergy, Mild, rash, 09/09/16) Sulfa (Sulfonamide Antibiotics) (Verified Allergy, Mild, 09/09/16) strawberry (Verified Allergy, Mild, 09/09/16) turkey (Verified Allergy, Mild, 09/09/16) PMhx/Soc History of Surgery: Yes (RIGHT 2ND TOE AMBUTATION) Anesthesia Reaction: No Hx Neurological Disorder: No Hx Respiratory Disorders: Yes (COPD(2ND HAND)) Hx Cardiac Disorders: Yes (murmur) Hx Psychiatric Problems: Yes (depression, OCD,psychosis) Hx Miscellaneous Medical Probl: Yes (osteomyelitis, skin ca) Hx Alcohol Use: Yes (OOC/SOCIAL) Hx Substance Use: No Hx Tobacco Use: No Smoking Status: Never smoker Physical Exam Vitals Vital Signs Date Time Temp Pulse Resp B/P Pulse Ox O2 Delivery O2 Flow Rate FiO2 12/29/16 02:10 98.1 92 18 110/62 97 Physical Exam Const: [] Head: Atraumatic Eyes: Normal Conjunctiva ENT: Normal External Ears, Nose and Mouth. Neck: Full range of motion..~ No meningismus. Resp: Clear to auscultation bilaterally Cardio: Regular rate and rhythm, no murmurs Abd: Soft, non tender, non distended. Normal bowel sounds Skin: No petechiae or rashes Back: No midline or flank tenderness Ext: No cyanosis, or edema Neur: Awake and alert Psych: Normal Mood and Affect Procedures/MDM Patient's behavioral symptoms have stabilized while in the department. Patient is medically cleared and appropriate for psychiatric evaluation and work up. No e/o neurologic, toxic, infectious, or metabolic cause. Placed on 5150 hold by telemetry psychiatry. Awaiting U placement Departure Diagnosis: Primary Impression: Suicidal ideation Condition: Serious CHRIS CHACKO Dec 29, 2016 03:12
[2016-12-29 03:16] LABS: ADD UMIC YES; UR BILIRUBIN (Dip) NEGATIVE (NEGATIVE); UR BLOOD (Dip) TRACE (NEGATIVE); UR CLARITY SLIGHTLY CLOUDY (CLEAR); UR COLOR LT. YELLOW (YELLOW); UR GLUCOSE (Dip) NEGATIVE (NEGATIVE); UR KETONES (Dip) NEGATIVE (NEGATIVE); UR LEUKOCYTE ESTERASE (Dip) 2+ (NEGATIVE); UR NITRITE (Dip) POSITIVE (NEGATIVE); UR TOTAL PROTEIN (Dip) NEGATIVE (NEGATIVE); UR UROBILINOGEN (Dip) 0.2 E.U./dL (0.1-1.0)
[2016-12-29 03:28] LABS: ACETAMINOPHEN < 10.0 ug/ml (10.0-30.0); ALANINE AMINOTRANSFERASE 30 IU/L (13-69); ALBUMIN 4.8 g/dl (3.3-4.9); ALBUMIN/GLOBULIN RATIO 1.92; ALKALINE PHOSPHATASE 108 IU/L (42-121); ANION GAP 13 (8-16); ASPARTATE AMINO TRANSFERASE 19 IU/L (15-46); BILIRUBIN,INDIRECT 0.2 mg/dl (0-1.1); BILIRUBIN,TOTAL 0.2 mg/dl (0.2-1.3); BLOOD UREA NITROGEN 21 mg/dl (7-20); CALCIUM 9.6 mg/dl (8.4-10.2); CARBON DIOXIDE 31 mmol/L (21-31); CHLORIDE 102 mmol/L (97-110); CREATININE 0.79 mg/dl (0.44-1.00); ETHANOL < 10.0 mg/dl; GLUCOSE 88 mg/dl (70-220); POTASSIUM 3.9 mmol/L (3.5-5.1); SALICYLATE < 1.0 mg/dl (5.0-30.0); SODIUM 142 mmol/L (135-144); TOTAL PROTEIN 7.3 g/dl (6.1-8.1)
[2016-12-29 03:33] LABS: BARBITURATES Negative (NEGATIVE); BENZODIAZEPINES Negative (NEGATIVE); CANNABINOIDS Negative (NEGATIVE); COCAINE Negative (NEGATIVE); OPIATES Negative (NEGATIVE)
[2016-12-29 03:39] LABS: UR BACTERIA MANY; UR SQUAMOUS EPITHELIAL CELL FEW; URINE RBCS 0-2 /HPF (0)
[2016-12-29 10:34] VITALS: BP 132/90; PULSE 100; RESP 18; TEMP 98.3
== END 2016-12-29 13:27 | disposition home or self-care (01) ==
LOC: E/R 02:07
DX: R45.851 Suicidal ideations (principal); J44.9 Chronic obstructive pulmonary disease, unspecified; Z85.828 Personal history of other malignant neoplasm of skin
CPT/HCPCS: 36415; 80053; 80306; 80307; 81001; 84703; 85025; 99283